=== PATIENT | male | born 1950 | race Caucasian/White ===

== ENCOUNTER 2016-07-19 09:23 | Day surgery (SDC) | payer MEDICARE ==
--- NOTE | 2016-07-18 20:44 | HP ---
RODNEY LAI [id number] HISTORY OF PRESENT ILLNESS: Rodney is a 66-year-old who presents to my clinic with complaint of osteomyelitis in the left 2nd and 3rd toes over the past three to four weeks. He is on IV antibiotics for this through [facility]. He has exposed bone on the two ulcers on the toes at the DIP joint. 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 PAST MEDICAL HISTORY: Significant for: 1. Hypertension. 2. Atrial fibrillation. 3. Hyperlipidemia. 4. Cardiomyopathy. 5. Non-Hodgkin's lymphoma. CURRENT MEDICATIONS: 1. Albuterol. 2. Augmentin. 3. Lipitor. 4. Carvedilol. 5. Lanoxin. 6. Advair. 7. Folic acid. 8. Omeprazole. 9. Septra. 10. Flomax. 11. Maxzide. 12. Vitamin D. 13. Zinc. ALLERGIES: 1. Vicodin. 2. Prednisone. REVIEW OF SYSTEMS: Noncontributory. FAMILY HISTORY: Noncontributory. 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 He states light usage of alcohol. He is a former smoker who has quit. PHYSICAL EXAMINATION: VITAL SIGNS: Blood pressure 112/76. Pulse 68 and regular. HEENT: Head is normocephalic. No scars or masses noted. External exam of the ears and eyes is negative. Throat shows no masses or inflammation. LUNGS: Clear. HEART: Shows no murmurs or gallops. Regular rate and rhythm. He has a defibrillator on the left and a port on the right side for his antibiotics and chemotherapy. LOWER EXTREMITIES: Pedal pulses intact. Filling time is 2-3 seconds. Color of skin is pink. NEUROLOGICAL: Gross sensation diminished to 5.07 monofilament wire vibratory sensation bilaterally. DERMATOLOGIC: Temperature is warm. Texture is dry. Turgor is fair. There is scant hair growth at the digits. He has ulcerations of the right great toe both medially and dorsally, with noted erythema and edema around these ulcers and serous drainage. He has two open ulcers on the left 2nd and 3rd toes at the DIP joint and distal portion of the toe that show osteomyelitis of the bone to the proximal phalanx. PLAN: We are scheduling him to do an amputation of the 2nd and 3rd toes. This will be done under MAC sedation with local anesthetic block. All risks inherent to the procedure are gone over with the patient and he understands these. There are no contraindications. He will be followed at [facility] on 07/19/2016.
[~2016-07-19 09:23] MED LIST: IV START KIT ONE; LACTATED RINGERS 1,000 ML ONE
[2016-07-19] MEDS ORDERED: ERTAPENEM SODIUM 1 G in NS 0.9% (MINI-BAG PLUS) 50 ML IV PRN (09:45)
[2016-07-19] MEDS ORDERED: DAPTOMYCIN 500 MG in SODIUM CHLORIDE 0.9% 100 ML IV PRN (09:45)
[2016-07-19 10:52] LABS: HEMATOCRIT 34.2 % (32.0-52.0); HEMOGLOBIN 10.9 gm/l (14.0-18.0)
[2016-07-19] MEDS ORDERED: PROPOFOL 40 ML IV ONE (11:06)
[2016-07-19] MEDS ORDERED: FENTANYL 100 MCG/2 ML VIAL ONE (11:06)
[2016-07-19] MEDS ORDERED: LIDOCAINE 2% (PRES FREE) 5 ML VIAL ONE (11:06)
[2016-07-19] MEDS ORDERED: MIDAZOLAM HCL 1 MG/ML 2ML VIAL ONE (11:06)
[2016-07-19] MEDS ORDERED: BUPIVACAINE 0.5% (PRES FREE) 30 ML VIAL ONE (12:03)
[2016-07-19] MEDS ORDERED: LIDOCAINE 1% (PRES FREE) 30 ML VIAL ONE (12:03)
[2016-07-19] MEDS ORDERED: OXYCODONE HCL 5 MG TABLET PO ONE (13:22)
[2016-07-19] MEDS ORDERED: OXYCODONE HCL 5 MG TABLET ONE (13:58)
--- NOTE | 2016-07-22 13:46 | OP ---
Rodney Ortiz DATE OF SURGERY: 07/19/2016 SURGEON: Juan Ortez M.D. PREOPERATIVE DIAGNOSIS: Osteomyelitis of the left second and third toes from the metatarsal interphalangeal joints distally. POSTOPERATIVE DIAGNOSIS: Osteomyelitis of the left second and third toes from the metatarsal interphalangeal joints distally. PROCEDURE: Amputation of the left second and third toes just distal to the metatarsophalangeal joint. ANESTHESIA: MAC sedation with local block using 10 mL of 1% Lidocaine and 0.5% Marcaine and digital block to block the second and third toes. HEMOSTASIS: Ankle tourniquet inflated to 250 mmHg for a total of 28 minutes left ankle. ESTIMATED BLOOD LOSS: Less than 10 mL. MATERIALS: 3-0 Vicryl, 3-0 Prolene. DESCRIPTION OF PROCEDURE: The patient was brought in the operating room and laid on the operating room table in supine position. After he was adequately sedated we anesthetized the foot with the above said anesthetic block. Prepped and draped the foot in standard sterile fashion using an Esmarch. We exsanguinated blood from the left foot and inflated the ankle tourniquet at that time. Attention was drawn to the dorsum of the left second toe where just distal to the metatarsophalangeal joint a racket type incision was made starting on the dorsal aspect of the toe running dorsal to plantar laterally and medially in a racket shape with more skin left intact on the plantar aspect of the toe. This incision was deepened to the epidermis and dermis all the way down to bone. All superficial vessels were Bovie cautery. Using Metzenbaum scissors we deepened to the periosteum. Using a sagittal saw we cut through the base of the proximal phalanx removing the bone and the toe distally from here. We went ahead and checked the bone stock at the base of the proximal phalanx and noted to be in good hard cortical bone. No signs of any active infection were noted in this area. We irrigated the wound, reapproximated the flexor and extensor tendons back together with 3-0 Vicryl. Closed the superficial structures with 3-0 Vicryl. Closed the skin with 3-0 Prolene in a simple interrupted fashion. The same procedure was done on the third toe in the same manner with the same outcome and findings. Both toes were then dressed with Xeroform gauze and dry sterile dressings. The tourniquet was let down and there was no perfusion of the foot. The patient tolerated the procedure well and left the operating room for recovery with vital signs stable and in no distress. Follow up in my office in 72 hours for postoperative check. JOB: [id number]
--- NOTE | 2016-07-26 14:35 | SURGPATH ---
[facility] [address] [place] [id number] Patient Name: LESTER LAI MR#: [id number] : 1950 Gender: M Specimen #: [id number] Collected: 07/19/2016 Received: 07/24/2016 Reported: 07/26/2016 Submitting Phys: RACHEL SAN Copy To Phys: SHEELA BARNETT [facility] Clinical History / Pre-Operative Diagnosis: Osteomyelitis Specimen Source / Surgical Procedure Performed: Bone and soft tissue left second and third toes Interpretation: BONE AND SOFT TISSUE, LEFT SECOND AND THIRD TOES, AMPUTATION: - CHRONIC OSTEOMYELITIS Electronically Signed Out Ginger Dale M.D. Gross Description: The specimen is received in formalin labeled with the patient's name and "bone and soft tissue left second and third toes". The specimen consists of the distal tip of two toes with king skin which are 3.5 x 3.5 x 2.0 cm in aggregate. The larger toe has a thick abnormal nail. The smaller toe is without nail. The the smaller toe is marked with black ink on the excisional surface and the larger toe with blue ink. The larger toe has a 1.0 x 0.5 cm ventral ulcerating lesion. The bone at the tips may be softened. A-B. insurance claims representative after decalcification MOY [place] Microscopic Description: Sections show fibrosis of the marrow space with some destruction of bony trabeculae and bony remodeling. 1: 30642, 45056 M86.372
== END 2016-07-19 14:30 | disposition home or self-care (01) ==
LOC: SDC 09:23
PROVIDERS: ATTEND Podiatrist
PROC: 0Y6U0Z1 Detachment at Left 3rd Toe, High, Open Approach (ICD-10-PCS; principal; 2016-07-19)
PROC: 0Y6S0Z1 Detachment at Left 2nd Toe, High, Open Approach (ICD-10-PCS; 2016-07-19)
DX: M86.672 Other chronic osteomyelitis, left ankle and foot (principal); L97.524 Non-pressure chronic ulcer of other part of left foot with necrosis of bone; I10 Essential (primary) hypertension; I48.91 Unspecified atrial fibrillation; E78.5 Hyperlipidemia, unspecified; I42.9 Cardiomyopathy, unspecified; Z85.72 Personal history of non-Hodgkin lymphomas; Z88.5 Allergy status to narcotic agent; Z88.8 Allergy status to other drugs, medicaments and biological substances; Z87.891 Personal history of nicotine dependence; Z95.810 Presence of automatic (implantable) cardiac defibrillator; Z79.899 Other long term (current) drug therapy
CPT/HCPCS: 28825 ×2; 85014; 85018; 93005; J3010; A9270; J2250; J2001; J7120; J7050; J0878; J1335